=== PATIENT | male | born 1990 | race Two or more races ===

== ENCOUNTER 2023-05-25 01:54 | Emergency (ER) | payer OTHER ==
[~2023-05-25] VITALS: Ht 172.7 cm; Wt 70.3 kg
[2023-05-25] MEDS ORDERED: LOPERAMIDE HCL 2 MG CAPSULE PO STA (03:23)
[2023-05-25] MEDS ORDERED: CEFAZOLIN SODIUM 1,000 MG VIAL IM STA (03:51)
== END 2023-05-25 04:00 | disposition home or self-care (01) ==
LOC: ER 01:54
DX: K59.1 Functional diarrhea (principal); Z88.8 Allergy status to other drugs, medicaments and biological substances